=== PATIENT | male | born 2005 | race African-American/Black ===

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

== ENCOUNTER 2024-02-10 16:34 | Emergency (ER) | payer BC ==
[~2024-02-10] VITALS: Ht 160 cm; Wt 56.2 kg
[2024-02-10] MEDS: normal saline 1000ML IV soln IVB ONE (17:11)
[2024-02-10] MEDS: ondansetron/PF 4mg/2ml inj IV PRN (17:11)
[2024-02-10] MEDS ORDERED: ONDA-243 PO (17:30)
[2024-02-10] MEDS ORDERED: CLIN300C3 PO (17:30)
[2024-02-10] MEDS: proCHLORperazine 10 MG/2 ml inj IV ONE (17:43)
[2024-02-10 17:58] LABS: BASOPHILS # (AUTO) 0.1 X10'3 (0-0.2); BASOPHILS % (AUTO) 0.6 % (0-1); EOSINOPHILS % (AUTO) 0 % (0-6); HEMATOCRIT 47.2 % (42.0-52.0); HEMOGLOBIN 15.5 g/dl (14.0-17.9); LYMPHOCYTES # (AUTO) 0.6 X10'3 (1.1-4.8); LYMPHOCYTES % (AUTO) 5.2 % (21-51); MEAN CORPUSCULAR HEMOGLOBIN 27.2 PG (27.0-31.0); MEAN CORPUSCULAR HGB CONC 32.9 g/dL (33.0-36.5); MEAN CORPUSCULAR VOLUME 82.7 FL (78-98); MEAN PLATELET VOLUME 8.9 FL (7.4-10.4); MONOCYTES # (AUTO) 0.5 X10'3 (0-0.9); NEUTROPHILS # (AUTO) 11.2 X10'3 (1.8-7.7); NEUTROPHILS % (AUTO) 90.2 % (42-75); PLATELET COUNT 335 X10'3 (140-440); RED CELL DISTRIBUTION WIDTH 14.6 % (11.5-14.5); WHITE BLOOD COUNT 12.4 X10'3 (4.5-11.0)
[2024-02-10 18:11] LABS: ALANINE AMINOTRANSFERASE 25 U/L (12-78); ALBUMIN 4.3 G/DL (3.4-5.0); ALBUMIN/GLOBULIN RATIO 1.1 (1.1-1.5); ALKALINE PHOSPHATASE 74 IU/L (20-180); ANION GAP 12 (8-16); ASPARTATE AMINO TRANSFERASE 15 U/L (10-37); BILIRUBIN,TOTAL 0.8 MG/DL (0.1-1.0); BLOOD UREA NITROGEN 15 MG/DL (7-18); CALCIUM 9.3 MG/DL (8.5-10.1); CHLORIDE 99 MMOL/L (99-107); CREATININE 1.07 MG/DL (0.60-1.10); GLUCOSE 102 MG/DL (70-104); LIPASE 29 U/L (16-77); POTASSIUM 3.2 MMOL/L (3.5-5.1); SODIUM 140 MMOL/L (135-145); TOTAL CARBON DIOXIDE 29.3 MMOL/L (24-32); TOTAL PROTEIN 8.1 G/DL (6.4-8.2); eCRCL 88 ML/MIN; eGFR > 90 ML/MIN
[2024-02-10] MEDS ORDERED: AMOX-115 PO (18:46)
[2024-02-10 18:50] VITALS: BP 136/68; PULSE 84; RESP 15; TEMP 98.3; O2SAT 95
== END 2024-02-10 18:51 | disposition home or self-care (01) ==
LOC: ER 16:35
DX: A08.4 Viral intestinal infection, unspecified (principal); K52.9 Noninfective gastroenteritis and colitis, unspecified
CPT/HCPCS: 36415; 80053; 83690; 85025; 96361; 96374; 96375; 99284; J0780; J2405; J7030

== ENCOUNTER 2024-02-12 09:21 | Emergency (ER) | payer BC ==
[~2024-02-12] VITALS: Ht 157.5 cm; Wt 47.8 kg
[~2024-02-12 09:21] MED LIST: AMOX-115 PO; CLIN300C3 PO; ONDA-243 PO
[2024-02-12 09:24] VITALS: TEMP 98
[2024-02-12] MEDS: normal saline 1000ML IV soln IVB ONE (09:47)
[2024-02-12] MEDS: normal saline 1000ml 1,000 ML IV ONE (09:47)
[2024-02-12] MEDS: diphenhydrAMINE 50 mg/ml inj IV ONE (09:47)
[2024-02-12] MEDS: proCHLORperazine 10 MG/2 ml inj IV ONE (09:48)
[2024-02-12] MEDS: famotidine/PF 10 mg/ml inj IV ONE (09:48)
[2024-02-12] MEDS: magnesium sulf-water 2g/50mL 50 ML IV ONE (10:04)
[2024-02-12] MEDS: glycopyrrolate 0.2mg/ml inj IV ONE (10:05)
[2024-02-12 10:21] LABS: BILIRUBIN,URINE NEGATIVE (Neg); CLARITY,URINE CLOUDY (Clear); COLOR,URINE YELLOW (Yellow); GLUCOSE, URINE NEGATIVE (Neg); KETONES,URINE TRACE mg/dl (Neg); LEUKOCYTE ESTERASE ,URINE NEGATIVE (Neg); NITRITES, URINE NEGATIVE (Neg); OCCULT BLOOD,URINE NEGATIVE (Neg); PROTEIN,URINE NEGATIVE (Neg)
[2024-02-12 10:22] LABS: UA COLLECTION TYPE CLN CATCH MIDSTREAM
[2024-02-12 10:29] LABS: AMORPHOUS URATES 3+; BACTERIA,URINE FEW /HPF (Neg); HYALINE CASTS 0-3 /LPF (NEGATIVE); MUCUS STRANDS FEW /LPF (Neg); RBC,URINE NONE SEEN /HPF (0-2); SQUAMOUS EPITHELIAL CELL,UR NONE SEEN /LPF (FEW); WBC,URINE 0-4 /HPF (0-4)
[2024-02-12 10:30] LABS: BASOPHILS # (AUTO) 0.1 X10'3 (0-0.2); BASOPHILS % (AUTO) 0.9 % (0-1); EOSINOPHILS % (AUTO) 0.1 % (0-6); HEMATOCRIT 47.6 % (42.0-52.0); HEMOGLOBIN 15.4 g/dl (14.0-17.9); LYMPHOCYTES # (AUTO) 1.6 X10'3 (1.1-4.8); LYMPHOCYTES % (AUTO) 14.3 % (21-51); MEAN CORPUSCULAR HEMOGLOBIN 26.9 PG (27.0-31.0); MEAN CORPUSCULAR HGB CONC 32.4 g/dL (33.0-36.5); MEAN CORPUSCULAR VOLUME 82.9 FL (78-98); MEAN PLATELET VOLUME 8.9 FL (7.4-10.4); MONOCYTES # (AUTO) 1.1 X10'3 (0-0.9); MONOCYTES % (AUTO) 10.1 % (2-12); NEUTROPHILS # (AUTO) 8.2 X10'3 (1.8-7.7); NEUTROPHILS % (AUTO) 74.6 % (42-75); PLATELET COUNT 349 X10'3 (140-440); RED BLOOD COUNT 5.73 X10'6 (4.70-6.10); RED CELL DISTRIBUTION WIDTH 14.5 % (11.5-14.5); WHITE BLOOD COUNT 10.9 X10'3 (4.5-11.0)
[2024-02-12 10:49] LABS: ALANINE AMINOTRANSFERASE 22 U/L (12-78); ALBUMIN 4.1 G/DL (3.4-5.0); ALKALINE PHOSPHATASE 67 IU/L (20-180); ANION GAP 10 (8-16); ASPARTATE AMINO TRANSFERASE 12 U/L (10-37); BLOOD UREA NITROGEN 9 MG/DL (7-18); BUN/CREATININE RATIO 9.5 (10.0-20.0); CALCIUM 9.7 MG/DL (8.5-10.1); CHLORIDE 100 MMOL/L (99-107); CREATININE 0.95 MG/DL (0.60-1.10); GLUCOSE 100 MG/DL (70-104); LIPASE 65 U/L (16-77); POTASSIUM 3.2 MMOL/L (3.5-5.1); SODIUM 139 MMOL/L (135-145); TOTAL CARBON DIOXIDE 28.6 MMOL/L (24-32); TOTAL PROTEIN 8.1 G/DL (6.4-8.2); eCRCL 84 ML/MIN; eGFR > 90 ML/MIN
[2024-02-12] MEDS ORDERED: POTA-207 PO (11:43)
[2024-02-12] MEDS ORDERED: METO10TA3 PO (11:43)
[2024-02-12 12:00] VITALS: BP 113/62; PULSE 76; RESP 12; O2SAT 98
[2024-02-12 18:27] LABS: URINE AMPHETAMINE SCREEN NEGATIVE (Neg); URINE BARBITUATE SCREEN NEGATIVE (Neg); URINE BENZODIAZEPINES SCREEN NEGATIVE (Neg); URINE CANNABINOID SCREEN POSITIVE (Neg); URINE COCAINE SCREEN NEGATIVE (Neg); URINE METHADONE SCREEN NEGATIVE (Neg); URINE OPIATE SCREEN NEGATIVE (Neg); URINE PHENCYCLIDINE SCREEN NEGATIVE (Neg)
== END 2024-02-12 12:02 | disposition home or self-care (01) ==
LOC: ER 09:21
DX: R11.2 Nausea with vomiting, unspecified (principal); R19.7 Diarrhea, unspecified; Z88.7 Allergy status to serum and vaccine; Z79.899 Other long term (current) drug therapy
CPT/HCPCS: 36415; 80053; 80305; 81001; 83690; 84145; 85025; 96365; 96366; 96375; 99284; J0780; J1200; J3490; J7030

== ENCOUNTER 2024-05-31 16:20 | Emergency (ER) | payer BC ==
[~2024-05-31] VITALS: Ht 172.7 cm; Wt 65.0 kg
[~2024-05-31 16:20] MED LIST changes: -AMOX-115 PO; -CLIN300C3 PO
[2024-05-31 16:26] VITALS: TEMP 98.5
[2024-05-31] MEDS: dicyclomine 10 MG capsule PO ONE (16:30)
[2024-05-31] MEDS: metoclopramide 5 mg/ml inj IV ONE ×2 (16:30→18:24)
[2024-05-31] MEDS: diphenhydrAMINE 50 mg/ml inj IV ONE (16:30)
[2024-05-31] MEDS: normal saline 1000ml 1,000 ML IV ONE ×2 (16:30→18:24)
[2024-05-31 17:04] LABS: BASOPHILS # (AUTO) 0.1 X10'3 (0-0.2); BASOPHILS % (AUTO) 0.5 % (0-1); EOSINOPHILS # (AUTO) 0.1 X10'3 (0-0.9); EOSINOPHILS % (AUTO) 0.3 % (0-6); HEMATOCRIT 48.2 % (42.0-52.0); HEMOGLOBIN 15.8 g/dl (14.0-17.9); LYMPHOCYTES # (AUTO) 0.9 X10'3 (1.1-4.8); LYMPHOCYTES % (AUTO) 5.7 % (21-51); MEAN CORPUSCULAR HEMOGLOBIN 27.1 PG (27.0-31.0); MEAN CORPUSCULAR HGB CONC 32.8 g/dL (33.0-36.5); MEAN CORPUSCULAR VOLUME 82.6 FL (78-98); MEAN PLATELET VOLUME 8.9 FL (7.4-10.4); MONOCYTES # (AUTO) 1.2 X10'3 (0-0.9); NEUTROPHILS # (AUTO) 14.2 X10'3 (1.8-7.7); NEUTROPHILS % (AUTO) 86.5 % (42-75); PLATELET COUNT 370 X10'3 (140-440); RED BLOOD COUNT 5.84 X10'6 (4.70-6.10); RED CELL DISTRIBUTION WIDTH 14.5 % (11.5-14.5); WHITE BLOOD COUNT 16.4 X10'3 (4.5-11.0)
[2024-05-31 17:33] LABS: ALANINE AMINOTRANSFERASE 64 U/L (12-78); ALBUMIN 4.4 G/DL (3.4-5.0); ALBUMIN/GLOBULIN RATIO 0.9 (1.1-1.5); ALKALINE PHOSPHATASE 81 IU/L (46-116); ANION GAP 14 (8-16); ASPARTATE AMINO TRANSFERASE 101 U/L (10-37); BILIRUBIN,TOTAL 0.4 MG/DL (0.1-1.0); BLOOD UREA NITROGEN 20 MG/DL (7-18); BUN/CREATININE RATIO 16.8 (10.0-20.0); CALCIUM 10.2 MG/DL (8.5-10.1); CHLORIDE 96 MMOL/L (99-107); CREATININE 1.19 MG/DL (0.60-1.10); GLUCOSE 128 MG/DL (70-104); LIPASE 58 U/L (16-77); POTASSIUM 3.7 MMOL/L (3.5-5.1); SODIUM 136 MMOL/L (135-145); TOTAL CARBON DIOXIDE 25.6 MMOL/L (24-32); TOTAL PROTEIN 9.1 G/DL (6.4-8.2); eCRCL 90 ML/MIN; eGFR > 90 ML/MIN
[2024-05-31 18:20] LABS: BILIRUBIN,URINE SMALL (Neg); CLARITY,URINE CLOUDY (Clear); COLOR,URINE YELLOW (Yellow); GLUCOSE, URINE NEGATIVE (Neg); KETONES,URINE >=80 mg/dl (Neg); LEUKOCYTE ESTERASE ,URINE NEGATIVE (Neg); NITRITES, URINE NEGATIVE (Neg); OCCULT BLOOD,URINE MODERATE (Neg); PROTEIN,URINE >=300 mg/dl (Neg); UROBILINOGEN,URINE 0.2 E.U/dL (0.2-1.0)
[2024-05-31 18:28] LABS: UA COLLECTION TYPE CLN CATCH MIDSTREAM
[2024-05-31 18:29] LABS: SQUAMOUS EPITHELIAL CELL,UR FEW /LPF (FEW)
[2024-05-31 18:30] LABS: BACTERIA,URINE 2+ /HPF (Neg); MUCUS STRANDS MANY /LPF (Neg); RBC,URINE 0-2 /HPF (0-2)
[2024-05-31 18:35] LABS: URINE AMPHETAMINE SCREEN NEGATIVE (Neg); URINE BARBITUATE SCREEN NEGATIVE (Neg); URINE BENZODIAZEPINES SCREEN NEGATIVE (Neg); URINE CANNABINOID SCREEN POSITIVE (Neg); URINE COCAINE SCREEN NEGATIVE (Neg); URINE METHADONE SCREEN NEGATIVE (Neg); URINE OPIATE SCREEN NEGATIVE (Neg); URINE PHENCYCLIDINE SCREEN NEGATIVE (Neg)
[2024-05-31 20:02] VITALS: BP 131/73; PULSE 94; RESP 16; O2SAT 94
== END 2024-05-31 20:03 | disposition home or self-care (01) ==
LOC: ER 16:20
DX: K52.89 Other specified noninfective gastroenteritis and colitis (principal); A08.39 Other viral enteritis; Z88.8 Allergy status to other drugs, medicaments and biological substances; Z72.89 Other problems related to lifestyle
CPT/HCPCS: 36415; 74176; 80053; 80305; 81001; 83605; 83690; 84145; 85025; 87088; 96361; 96374; 99285; J2765; J7030

== ENCOUNTER 2025-01-05 13:23 | Emergency (ER) | payer BC ==
[~2025-01-05] VITALS: Ht 160 cm; Wt 51.5 kg
--- NOTE | 2025-01-05 14:19 | Physician Documentation ---
History of Present Illness ~ Chief Complaint: Vomiting Stated Complaint: VOMITING Time Seen by MD: 14:10 Primary Medical Doctor: ARTURO CHILDS 19-year-old male presents to the ED with a complaint of nausea vomiting for the last three days. He states that he believes this is related to his marijuana use which he states he has been habitual every day. He reports having forceful vomiting. He is a his symptoms are alleviated with hot showers Day of Onset: January 05, 2025 Medication Reconciliation Allergies: Coded Allergies: oseltamivir (Verified Allergy, Unknown, 01/05/25) Scheduled PRN ONDANSETRON ODT 4mg tablet (Ondansetron Odt), 1 TAB PO Q6H PRN PRN for nausea/vomiting ONDANSETRON ODT 4mg tablet (Ondansetron Odt), 1 TAB PO Q6H PRN PRN for nausea/vomiting Past Medical History Past Medical History: No Pertinent History Past Surgical History: no surgical history Alcohol Use: Occasionally Drug Use: none Lives In: Home Physical Exam Vital Signs: Heart Rate: 86, Respiratory Rate: 16, BP: 147/85, Pulse Oximetry: 98, Weight: 51.500 Oxygen Flow Rate: 0 Progress Results/Orders Results/Orders Completed Orders - CYRUS COLLIER [employer] Normal Saline 1000ml (Sodium Chloride 10 (01/05/25 14:20) Haloperidol Lact. (Haldol) (01/05/25 14:20) Prochlorperazine Inj (Compazine Inj) (01/05/25 14:20) Cbc/Diff (01/05/25 14:17) BMP (01/05/25 14:17) Lipase (01/05/25 14:17) CMP (01/05/25 14:17) Capsaicin 0.025% Cream (Zostrix Cream) (01/05/25 14:20) Potassium Cl Sr Tablet (K-Dur Tablet) (01/05/25 14:57) Medications Received in ER Medications (Trade) Dose Ordered Sig/Yanet Route PRN Reason Start Time Stop Time Status Last Admin Dose Admin (sodium chloride 1000ml IV soln) 1,000 ml ONCE ONCE IVB 01/05/25 14:20 01/05/25 14:21 DC 01/05/25 14:43 1,000 ML (Haldol) 5 mg ONCE ONCE IM 01/05/25 14:20 01/05/25 14:21 DC 01/05/25 14:46 5 MG (Compazine inj) 10 mg ONCE ONCE IV 01/05/25 14:20 01/05/25 14:22 DC 01/05/25 14:43 10 MG (K-DUR tablet) 40 meq ONCE STAT PO 01/05/25 14:57 01/05/25 14:58 DC 01/05/25 15:18 40 MEQ Vital Signs 01/05/25 01/05/25 13:41 15:41 Temp 98.0 Pulse 86 82 Resp 16 16 B/P (MAP) 147/85 110/58 Pulse Ox 98 98 O2 Flow Rate 0 Laboratory Tests Test 01/05/25 14:25 White Blood Count 12.8 H Red Blood Count 6.05 Hemoglobin 16.0 Hematocrit 48.2 Mean Corpuscular Volume 79.8 Mean Corpuscular Hemoglobin 26.5 L Mean Corpuscular Hemoglobin Concent 33.2 Red Cell Distribution Width 13.4 Platelet Count 349 Mean Platelet Volume 9.6 Neutrophils (%) (Auto) 75.9 H Lymphocytes (%) (Auto) 10.5 L Monocytes (%) (Auto) 12.3 H Eosinophils (%) (Auto) 0.7 Basophils (%) (Auto) 0.6 Neutrophils # (Auto) 9.7 H Lymphocytes # (Auto) 1.3 Monocytes # (Auto) 1.6 H Eosinophils # (Auto) 0.1 Basophils # (Auto) 0.1 CBC Comment Sodium Level 138 Potassium Level 3.0 *L Chloride Level 93 L Carbon Dioxide Level 36.3 H Anion Gap 9 Blood Urea Nitrogen 28 H Creatinine 1.32 H Estimated GFR/1.73 m2 83 BUN/Creatinine Ratio 21.2 H Glucose Level 114 H Calcium Level 10.4 H Total Bilirubin 0.7 Aspartate Amino Transf (AST/SGOT) 17 Alanine Aminotransferase (ALT/SGPT) 37 Alkaline Phosphatase 71 Total Protein 9.4 H Albumin 5.1 H Globulin 4.3 Albumin/Globulin Ratio 1.2 Lipase 19 Chemistry Comments Medical Decision Making Findings Patient presents presents with a all the clinical indications for cannabinoid induced cyclical vomiting He had them for hypokalemia dehydration nausea vomiting. After treatment patient reported improved symptoms does vision ceasing marijuana usage which he verbalized understanding Diff Dx GI Bleed:Consideration: Include: AE fistula, Angiodysplasia, Bleeding diathesis, Blood loss anemia, Carcinoma, Diverticulosis, Diverticulitis, Esophageal varicies, Esophagitis, Gastritis, Gastroenteritis, Inflammatory BD, Lisa-Reagan syndrome, Meckel's diverticulum, PUD, Other Departure Disposition: HOME / SELF CARE / HOMELESS Impression: Primary Impression: Hypokalemia Additional Impression: Cyclical vomiting Discharge Instructions: Cannabinoid Hyperemesis Syndrome, Nausea and Vomiting, Adult Referrals: NO PRIMARY CARE PROVIDER (PCP) Signature Scribe Signature: . Attestation: The note accurately reflects work and decisions made by me.Cyrus Collier - ELSA 01/05/25 18:18 CYRUS COLLIER NP January 05, 2025 14:19
[2025-01-05 14:37] LABS: BASOPHILS # (AUTO) 0.1 X10'3 (0-0.2); BASOPHILS % (AUTO) 0.6 % (0-1); EOSINOPHILS # (AUTO) 0.1 X10'3 (0-0.9); EOSINOPHILS % (AUTO) 0.7 % (0-6); HEMATOCRIT 48.2 % (42.0-52.0); LYMPHOCYTES # (AUTO) 1.3 X10'3 (1.1-4.8); LYMPHOCYTES % (AUTO) 10.5 % (21-51); MEAN CORPUSCULAR HEMOGLOBIN 26.5 PG (27.0-31.0); MEAN CORPUSCULAR HGB CONC 33.2 g/dL (33.0-36.5); MEAN CORPUSCULAR VOLUME 79.8 FL (78-98); MEAN PLATELET VOLUME 9.6 FL (7.4-10.4); MONOCYTES # (AUTO) 1.6 X10'3 (0-0.9); MONOCYTES % (AUTO) 12.3 % (2-12); NEUTROPHILS # (AUTO) 9.7 X10'3 (1.8-7.7); NEUTROPHILS % (AUTO) 75.9 % (42-75); PLATELET COUNT 349 X10'3 (140-440); RED BLOOD COUNT 6.05 X10'6 (4.70-6.10); RED CELL DISTRIBUTION WIDTH 13.4 % (11.5-14.5); WHITE BLOOD COUNT 12.8 X10'3 (4.5-11.0)
[2025-01-05] MEDS: proCHLORperazine 10 MG/2 ml inj IV ONE (14:43)
[2025-01-05] MEDS: normal saline 1000ML IV soln IVB ONE (14:43)
[2025-01-05] MEDS: haloperidol lactate 5mg/ml inj IM ONE (14:46)
[2025-01-05 14:52] LABS: ALANINE AMINOTRANSFERASE 37 U/L (12-78); ALBUMIN 5.1 G/DL (3.4-5.0); ALBUMIN/GLOBULIN RATIO 1.2 (1.1-1.5); ALKALINE PHOSPHATASE 71 IU/L (46-116); ANION GAP 9 (8-16); ASPARTATE AMINO TRANSFERASE 17 U/L (10-37); BILIRUBIN,TOTAL 0.7 MG/DL (0.1-1.0); BLOOD UREA NITROGEN 28 MG/DL (7-18); BUN/CREATININE RATIO 21.2 (10.0-20.0); CALCIUM 10.4 MG/DL (8.5-10.1); CHLORIDE 93 MMOL/L (99-107); CREATININE 1.32 MG/DL (0.60-1.10); GLUCOSE 114 MG/DL (70-104); LIPASE 19 U/L (16-77); SODIUM 138 MMOL/L (135-145); TOTAL CARBON DIOXIDE 36.3 MMOL/L (24-32); TOTAL PROTEIN 9.4 G/DL (6.4-8.2); eCRCL 64 ML/MIN; eGFR 83 ML/MIN
[2025-01-05] MEDS: capsaicin 0.025% cream TP ONE (15:17)
[2025-01-05] MEDS: potassium Cl 20 mEq SR tablet PO STA (15:18)
[2025-01-05 15:41] VITALS: BP 110/58; PULSE 82; RESP 16; TEMP 98; O2SAT 98
== END 2025-01-05 15:42 | disposition home or self-care (01) ==
LOC: ER 13:24
DX: E87.6 Hypokalemia (principal); R11.15 Cyclical vomiting syndrome unrelated to migraine; F12.90 Cannabis use, unspecified, uncomplicated; Z88.1 Allergy status to other antibiotic agents; Z72.89 Other problems related to lifestyle
CPT/HCPCS: 36415; 80053; 83690; 85025; 96361; 96372; 96374; 99284; J0780; J1630; J7030

== ENCOUNTER 2025-03-22 10:28 | Emergency (ER) | payer BC ==
[~2025-03-22] VITALS: Ht 160 cm; Wt 59.0 kg
--- NOTE | 2025-03-22 11:03 | Physician Documentation ---
History of Present Illness ~ Chief Complaint: Vomiting Stated Complaint: VOMITING Time Seen by MD: 13:53 Primary Medical Doctor: ARTURO ALCALA HPI 20-year-old male presents with nausea, vomiting, diarrhea. Reports inability to keep liquids down. Medication Reconciliation Allergies: Coded Allergies: oseltamivir (Verified Allergy, Unknown, 01/05/25) Scheduled PRN ONDANSETRON ODT 4mg tablet (Ondansetron Odt), 1 TAB PO Q6H PRN PRN for nausea/vomiting ONDANSETRON ODT 4mg tablet (Ondansetron Odt), 1 TAB PO Q6H PRN PRN for naus ea/vomiting ONDANSETRON ODT 4mg tablet (Ondansetron Odt), 1 TAB PO Q6H PRN PRN for nausea/vomiting Past Medical History Past Medical History: No Pertinent History Past Surgical History: no surgical history Alcohol Use: Occasionally Drug Use: none Lives In: Home Review of Systems ROS As stated above in the HPI, otherwise all systems are reviewed and negative. Physical Exam Vital Signs: Temperature: 98.9, Heart Rate: 116, Respiratory Rate: 16, BP: 137/78, Pulse Oximetry: 99, Weight: 59.000 Oxygen Flow Rate: 0 Physical Exam General: Alert, in obvious distress with retching. HEENT: PERRL, EOMI, no injection, dry mucous membranes. Neck: Full range of motion. Respiratory: Lungs clear, no respiratory distress. Chest: No accessory muscle use. Cardiovascular: Regular rate and rhythm, no murmurs. Gastrointestinal: Soft, diffusely TTP, nondistended. Bowels sounds present. Extremities: Normal range of motion, no deformity. Neurologic: Oriented x4. Psychiatric: Normal mood and affect. Skin: Normal color, warm and dry. No edema, no ecchymosis. Progress Results/Orders Results/Orders Orders - CHIKIS CHRISTIANSEN NP Saline Lock (03/22/25 12:01) Potassium Chloride Er.Tablet (Klor-Con E (03/22/25 14:30) Completed Orders - CHIKIS CHRISTIANSEN NP Ondansetron Disint. Tablet (Zofran Odt T (03/22/25 11:05) Metoclopramide Inj (Reglan Inj) (03/22/25 12:05) Diphenhydramine Inj (Benadryl Inj.) (03/22/25 12:05) Normal Saline 1000ml (0.9% Sodium Chlori (03/22/25 13:55) Morphine 4mg/Ml Inj. (Morphine Inj.) (03/22/25 14:05) Lorazepam Inj (Ativan Inj) (03/22/25 14:20) Normal Saline 1000ml (0.9% Sodium Chlori (03/22/25 14:55) Medications Received in ER Medications (Trade) Dose Ordered Sig/Yanet Route PRN Reason Start Time Stop Time Status Last Admin Dose Admin (Zofran ODT tablet) 4 mg ONCE ONCE PO 03/22/25 11:05 03/22/25 11:06 DC 03/22/25 11:17 4 MG (Reglan inj) 10 mg ONCE ONCE IV 03/22/25 12:05 03/22/25 12:06 DC 03/22/25 14:09 10 MG (Benadryl inj.) 25 mg ONCE ONCE IV 03/22/25 12:05 03/22/25 12:06 DC 03/22/25 14:12 25 MG Sodium Chloride 1,000 ml @ 1,000 mls/hr ONCE ONCE IV 03/22/25 13:55 03/22/25 14:54 DC 03/22/25 14:09 1,000 MLS/HR (morphine inj.) 4 mg ONCE ONCE IV 03/22/25 14:05 03/22/25 14:06 DC 03/22/25 14:15 4 MG (Ativan inj) 1 mg ONCE ONCE IV 03/22/25 14:20 03/22/25 14:21 DC 03/22/25 14:22 1 MG (Klor-con ER tablet) 8 meq ONCE PO 03/22/25 14:30 03/22/25 15:46 8 MEQ Vital Signs 03/22/25 03/22/25 03/22/25 03/22/25 10:57 14:09 14:30 16:07 Temp 98.9 Pulse 116 120 82 87 Resp 16 18 16 14 B/P (MAP) 137/78 102/80 (87) 118/82 (94) 108/64 (79) Pulse Ox 99 99 99 98 O2 Flow Rate 0 0 0 0 Laboratory Tests Test 03/22/25 11:16 White Blood Count 17.7 H Red Blood Count 6.53 H Hemoglobin 17.7 Hematocrit 52.7 H Mean Corpuscular Volume 80.6 Mean Corpuscular Hemoglobin 27.1 Mean Corpuscular Hemoglobin Concent 33.6 Red Cell Distribution Width 13.9 Platelet Count 449 H Mean Platelet Volume 9.2 Neutrophils (%) (Auto) 84.0 H Lymphocytes (%) (Auto) 7.3 L Monocytes (%) (Auto) 8.1 Eosinophils (%) (Auto) 0 Basophils (%) (Auto) 0.6 Neutrophils # (Auto) 14.9 H Lymphocytes # (Auto) 1.3 Monocytes # (Auto) 1.4 H Eosinophils # (Auto) 0.0 Basophils # (Auto) 0.1 CBC Comment Sodium Level 139 Potassium Level 3.3 L Chloride Level 88 L Carbon Dioxide Level 31.7 Anion Gap 19 H Blood Urea Nitrogen 44 H Creatinine 1.89 H Estimated GFR/1.73 m2 54 BUN/Creatinine Ratio 23.3 H Glucose Level 134 H Calcium Level 10.7 H Total Bilirubin 1.0 Aspartate Amino Transf (AST/SGOT) 19 Alanine Aminotransferase (ALT/SGPT) 28 Alkaline Phosphatase 72 Total Protein 10.0 H Albumin 5.5 H Globulin 4.5 H Albumin/Globulin Ratio 1.2 Lipase 24 Chemistry Comments Medical Decision Making Additional Comments 20 Year old male who presented with nausea, vomiting, diarrhea. History of daily marijuana use. Has been seen in his emergency department for similar symptoms presumed to be due to cannabinoid induced hyperemesis syndrome. His labs were remarkable for an elevated white blood cell count and NILTON. He was hydrated with 2 L of normal saline and medicated for his nausea. He then slept, and woke up feeling better. No further vomiting after he received intravenous medications. His parents accompany him we had a long discussion about the need for him to stop using marijuana. They note that they have told him the same, but he is not inclined to quit. Patient will be discharged home with ondansetron and directions to follow up with primary care provider or return if worse. Departure Time of Disposition: 16:28 Admitted to Inpatient Unit: yes Impression: Primary Impression: Cyclical vomiting Condition: Stable Discharge Instructions: Cannabinoid Hyperemesis Syndrome Additional Instructions: Your symptoms are due to marijuana use. Your kidneys were affected by your severe dehydration, in his can become dangerous with repeated episodes. Please do not use any more marijuana. Follow up with your primary care provider, return if worse. Referrals: NO PRIMARY CARE PROVIDER (PCP) Prescriptions ONDANSETRON ODT 4mg tablet (ONDANSETRON ODT) 4 Mg Tab.rapdis 1 TAB PO Q6H PRN PRN for nausea/vomiting for 4 Days, #16 TAB 0 Refills Prov: CHIKIS CHRISTIANSEN NP 03/22/25 Education Educated: Patient Educated regarding: diagnosis, treatment, prognosis, need for follow up Signature Scribe Signature: x Attestation: The note accurately reflects work and decisions made by me.Chikis Cruz NP 03/22/25 11:02 CHIKIS CHRISTIANSEN NP Mar 22, 2025 11:02
[2025-03-22] MEDS: ondansetron 4mg rapidly disintigrating tab PO ONE (11:17)
[2025-03-22 11:31] LABS: MEAN PLATELET VOLUME 9.2 FL (7.4-10.4); RED CELL DISTRIBUTION WIDTH 13.9 % (11.5-14.5)
[2025-03-22 11:50] LABS: CREATININE 1.89 MG/DL (0.60-1.10); TOTAL CARBON DIOXIDE 31.7 MMOL/L (24-32); eCRCL 49 ML/MIN; eGFR 54 ML/MIN
[2025-03-22] MEDS: metoclopramide 5 mg/ml inj IV ONE (14:09)
[2025-03-22] MEDS: normal saline 1000ml 1,000 ML IV ONE ×2 (14:09→15:43)
[2025-03-22] MEDS: morphine 4 MG/ML inj SYRINge IV ONE (14:15)
[2025-03-22] MEDS: potassium chloride 8mEq ER tablet PO SCH (15:46)
[2025-03-22] MEDS ORDERED: ONDA-243 PO (16:29)
[2025-03-22 16:49] VITALS: BP 130/71; PULSE 82; RESP 16; TEMP 98.9; O2SAT 100
== END 2025-03-22 16:36 | disposition home or self-care (01) ==
LOC: ER 10:29
DX: R11.15 Cyclical vomiting syndrome unrelated to migraine (principal); R19.7 Diarrhea, unspecified; Z72.89 Other problems related to lifestyle
CPT/HCPCS: 36415; 80053; 83690; 85025; 96361; 96374; 96375; 99285; J1200; J2060; J2270; J2765; J7030